=== PATIENT | male | born 1995 | race African-American/Black ===

== ENCOUNTER 2024-12-11 04:55 | Emergency (ER) | payer OTHER ==
[~2024-12-11] VITALS: Ht 195.6 cm; Wt 81.8 kg
[2024-12-11] MEDS: IBUPROFEN 800 MG TAB PO ONE (06:50)
[2024-12-11] MEDS ORDERED: AMOX875T2 PO (07:32)
[2024-12-11] MEDS: AUGMENTIN 875 MG TAB PO ONE (07:38)
[2024-12-11 07:47] VITALS: BP 130/72; TEMP 97.8; O2SAT 100
== END 2024-12-11 07:48 | disposition home or self-care (01) ==
LOC: M ED 04:55
DX: S60.511A Abrasion of right hand, initial encounter (principal); M79.641 Pain in right hand; Y04.0XXA Assault by unarmed brawl or fight, initial encounter; F17.200 Nicotine dependence, unspecified, uncomplicated; F10.10 Alcohol abuse, uncomplicated; Z79.2 Long term (current) use of antibiotics; Y92.9 Unspecified place or not applicable; Y93.9 Activity, unspecified; Y99.9 Unspecified external cause status